=== PATIENT | female | born 1995 | race African-American/Black ===

== ENCOUNTER → 2021-10-30 11:03 | Outpatient (CLI) | payer OTHER, SELFPAY ==
--- NOTE | ~2021-10-30 | US_ITS ---
EXAMINATION: US OB /maternal detail DATE: 10/30/2021 11:47 INDICATION: Encounter for supervision of normal first during the second trimester. TECHNIQUE: Multiple obstetric sonographic images performed. FINDINGS: There is a single living fetus in transverse lie. The placenta is posterior and not low-lying with ca udal margin approximately 5.5 cm from the internal cervical os. Cervical length measures approximatel y 4.3 cm. Amniotic fluid volume is subjectively normal. heart rate of 149 beats per minute. The following anatomy was identified as normal: Ventricles, choroid plexus, falx and cava septum pellucidum Cerebellum and cisterna magna Nuchal fold Upper lip Spine Heart Diaphragm Stomach Kidneys Bladder 3 vessel cord and cord insertion Bilateral upper and lower extremities including hands and feet The following biometric data were obtained: BPD: 4.2 cm -> 18 weeks 6 days Head circumference: 15.6 cm -> 18 weeks 4 days Abdominal circumference: 12.1 cm -> 17 weeks 6 days Femur length: 2.9 cm -> 18 weeks 6 days Head circumference to abdominal circumference ratio: 1.29 (normal range 1.09-1.27). These measurements are otherwise concordant. Estimated weight: 236 g (+/-) 35 g. or 8 oz. (+/-) 1 oz. IMPRESSION: 1. Single living fetus with transverse lie presentation with heart rate of 149 bpm. 2. Gestational age by ultrasound of 18 weeks 4 day(s) (+/-) 1 week 2 day(s) with ultrasound estimat ed date of delivery (FROY) of 03/29/2022. Estimated weight is 89th percentile by Hadlock criteria when 04/05/2022 is used as the FROY. Please correlate with clinical information or earlier ultrasounds f or most accurate FROY. 3. Normal survey. 4. Head circumference to abdominal circumference ratio of 1.29 slightly greater than normal range of 1.09-1.27. Reviewed, dictated and finalized at location A. IMPRESSION: 1. Single living fetus with transverse lie presentation with heart rate of 149 bpm. 2. Gestational age by ultrasound of 18 weeks 4 day(s) (+/-) 1 week 2 day(s) w ith ultrasound estimated date of delivery (FROY) of 03/29/2022. Estimated we ight is 89th percentile by Hadlock criteria when 04/05/2022 is used as the FROY. P lease correlate with clinical information or earlier ultrasounds for most accur ate FROY. 3. Normal survey. 4. Head circumference to abdominal circumference ratio of 1.29 slightly greater than normal range of 1.09-1.27.
== END ==
PROVIDERS: PCP Obstetrics & Gynecology; Visit Provider Obstetrics & Gynecology
DX: Z34.92 Encounter for supervision of normal pregnancy, unspecified, second trimester (principal); Z3A.18 18 weeks gestation of pregnancy
CPT/HCPCS: 76805